=== PATIENT | male | born 1945 | race Caucasian/White ===

== ENCOUNTER → 2017-05-09 | Day surgery (SDC) | payer MEDICARE, OTHER ==
[~2017-05-09] VITALS: Ht 177.8 cm; Wt 96.1 kg
[~2017-05-09] MED LIST: ADVAIR INH; DUONEB INH; IMODIUM MULTI-1 EACH PO; K-TAB 10MEQ10 MEQ PO; KEPPRA500 MG PO; LASIX80 MG PO; MAALOX LIQ UNIT30 ML PO; MILK OF MAGN400 ML PO; OXYGEN M-15 INH; PEPCID20 MG PO; ROBITUSSIN100 MG/5 M PO; SURFAK240 MG PO; TYLENOL325 MG PO; XANAX0.5 MG PO
== END | disposition disaster alternative care site (69) ==
LOC: GPOC 05-08 15:00 → GEND 07:44 → GPOC 15:00
PROC: 0DJ08ZZ Inspection of Upper Intestinal Tract, Via Natural or Artificial Opening Endoscopic (ICD-10-PCS; principal; 2017-05-09)
DX: I85.00 Esophageal varices without bleeding (principal); K31.89 Other diseases of stomach and duodenum; M19.90 Unspecified osteoarthritis, unspecified site; J44.9 Chronic obstructive pulmonary disease, unspecified; Z98.890 Other specified postprocedural states; Z87.442 Personal history of urinary calculi; Z79.899 Other long term (current) drug therapy
CPT/HCPCS: J2001; J7030